=== PATIENT | male | born 1965 | race Caucasian/White ===

== ENCOUNTER 2021-12-28 10:25 | Emergency (ER) | payer OTHER ==
[~2021-12-28] VITALS: Ht 182.9 cm; Wt 90.0 kg
[2021-12-28] MEDS ORDERED: OXYCODONE30 MG PO (10:57)
[2021-12-28] MEDS ORDERED: COLACE100 MG PO (10:58)
[2021-12-28 11:07] LABS: HEMATOCRIT 50.9 % (39.0-50.0); IMMATURE GRANULOCYTES 0.2 % (0.0-5.0); MEAN CORPUSCULAR HGB 33.4 pG CALC (26.0-32.0); MEAN CORPUSCULAR HGB CONC 33.4 g/dL CAL (32.0-36.0); NEUT# 6.98 thou/uL (1.82-7.42); RED BLOOD COUNT 5.09 mill/uL (4.70-6.10); RED CELL DISTRI WIDTH 13.1 % (11.5-15.5)
[2021-12-28 11:12] LABS: ALBUMIN 4.2 g/dL (3.2-5.0); ALKALINE PHOSPHATASE 98 u/l (38-126); ANION GAP 13 (6-22 (CALC)); BILIRUBIN, TOTAL 0.3 mg/dL (0.0-1.4); BUN 27 mg/dL (9-20); BUN/CREATININE RATIO 20 (12-20 (CALC)); CARBON DIOXIDE 26 mmol/l (22-30); CHLORIDE 103 mmol/l (95-108); CREATININE 1.3 mg/dL (0.7-1.3); GFR 57 ML/MIN (>=60 (CALC)); GFR FOR AFR.AMER. > 60 ML/MIN (>=60 (CALC)); POTASSIUM 4.8 mmol/l (3.5-5.1); SGOT/AST 40 u/l (17-59); SODIUM 137 mmol/l (137-146); TOTAL PROTEIN 7.1 g/dL (6.3-8.2)
[2021-12-28 11:14] LABS: ACT PARTIAL THROMBO TIME 24.3 SECONDS (20.0-32.5); INTERNATIONAL NORMALIZED RATIO 0.9 RATIO (0.7-1.3); PROTHROMBIN TIME 9.9 SECONDS (9.0-12.5)
[2021-12-28 13:43] VITALS: BP 140/90
== END 2021-12-28 13:30 ==
LOC: ED 10:25
DX: T20.20XA Burn of second degree of head, face, and neck, unspecified site, initial encounter (principal); T23.261A Burn of second degree of back of right hand, initial encounter; T20.25XA Burn of second degree of scalp [any part], initial encounter; T21.21XA Burn of second degree of chest wall, initial encounter; T22.211A Burn of second degree of right forearm, initial encounter; T22.231A Burn of second degree of right upper arm, initial encounter; T24.201A Burn of second degree of unspecified site of right lower limb, except ankle and foot, initial encounter; T31.10 Burns involving 10-19% of body surface with 0% to 9% third degree burns; J44.9 Chronic obstructive pulmonary disease, unspecified; W40.1XXA Explosion of explosive gases, initial encounter; Y93.89 Activity, other specified; Y92.009 Unspecified place in unspecified non-institutional (private) residence as the place of occurrence of the external cause